=== PATIENT | female | born 1990 | race Two or more races ===

== ENCOUNTER → 2017-10-01 | Emergency (ER) | payer OTHER ==
[~2017-10-01] VITALS: Ht 160 cm; Wt 56.7 kg
[~2017-10-01] MED LIST: HYDROCODONE/APAP 5/325MG 1 EACH TABLET ONE; HYDROCODONE/APAP 5/325MG 1 EACH TABLET PO ONE; ONDANSETRON 4 MG TAB.RAPDIS ONE; ONDANSETRON 4 MG TAB.RAPDIS SL ONE
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
--- NOTE | 2017-10-01 01:02 | NUR ---
BEDSIDE FOR EVAL.
--- NOTE | 2017-10-01 01:15 | NUR ---
[employer]ICE OFF[employer]ERS BEDSIDE WITH PATIENT
--- NOTE | 2017-10-01 01:21 | NUR ---
[employer]ICE OFF[employer]ERS OUT OF PT'S ROOM.
--- NOTE | 2017-10-01 03:23 | NUR ---
Patient discharged to home in stable condition. Written and verbal after care instructions given. Patient verbalizes understanding of instruction. bedside with patient. Pt ambulated with steady gait out of er. Pt instructed not to drive. Pt's driving pt home. vss on discharge.
[2017-10-01 03:24] VITALS: BP 103/61
== END | disposition home or self-care (01) ==
LOC: ER 00:46
DX: S00.33XA Contusion of nose, initial encounter (principal); S80.11XA Contusion of right lower leg, initial encounter; R04.0 Epistaxis; M54.5 Low back pain; V43.52XA Car driver injured in collision with other type car in traffic accident, initial encounter; Y93.89 Activity, other specified; Y92.89 Other specified places as the place of occurrence of the external cause; Y99.8 Other external cause status
CPT/HCPCS: 70260-TC; 72100-TC; 73590-TC; A4606; Q0162; Z7610